=== PATIENT | male | born 1970 | race Caucasian/White ===

== ENCOUNTER 2017-04-17 16:32 | Observation (INO) ==
--- NOTE | 2017-04-17 17:11 | Emergency Department Note ---
Disposition Clinical Impression: Loss of consciousness Chest pain Qualifiers: Chest pain type: unspecified Qualified Code(s): R07.9 - Chest pain, unspecified Disposition: Admitted As Inpatient Condition: Fair Referrals: NONE,PCP [Primary Care Provider] - Forms: ED Satisfaction Letter Chest Pain HPI - General Chief Complaint: ED Psychiatric Symptoms Stated Complaint: anxiety, depression Time Seen by Provider: 04/17/17 16:35 Nursing Notes Reviewed: Yes - History of Present Illness HPI Narrative: Patient is a 46-year-old male with history of anxiety, depression, hypertension presented to the ED today with sudden chest pain. Patient was sitting on his porch after drinking one beer after taking his hypertensive medications and began having chest pain while sitting down about 4:15 today. He said that his whole left arm went numb and had shaking and sweating but no nausea or vomiting. As he walked inside the house he says legs gave out and he does not remember or happen after that. He woke up when EMS visit. His friend who saw him and called the EMS said that he was seizing. He has had this chest pain for a while every 2-3 weeks and today his chest pain was sharper. Patient denies recent illness, fever, chills, vision changes, hemoptysis. Patient says that he does have a chronic cough. He has a father who has congestive heart failure and a grandfather with a ID around age 50. Patient states that he is recently homeless. Patient denies suicidal or homicidal ideations. Severity scale (1-10): 5 - Related Data Previous Rx's Medication Instructions Recorded Paroxetine HCl 10 mg PO DAILY #30 tablet 06/18/16 Allergies Allergy/AdvReac Type Severity Reaction Status Date / Time No Known Allergies Allergy Verified 06/17/16 18:25 Chest Pain PMH - Past Medical History Medical history: Reports: hypertension Surgical history: Reports: no surgical history Psychiatric history: Reports: anxiety, bipolar, depression, PTSD, prior suicide attempt, previous psychiatric hospitalization - Social History Smoking Status: Former smoker Alcohol use: Reports: occasionally, recent Drug use: Reports: none Physical Exam Constitutional: Alert, in no acute distress, well nourished, well developed. Head: Normocephalic, atraumatic, normal contour and symmetric, no masses, lesions or scars Heart: Normal, regular rate and rhythm, no murmurs Lungs: Clear to auscultation, no wheezes, rales, or rhonchi Abdomen: tenderness to palpation in right upper and lower quadrant, Soft, nondistended, and no masses palpable, bowel sounds present and normal, no guarding or rigidity. Extremities: No clubbing, cyanosis, or edema, radial pulse +2/4, capillary refill <2sec. Skin: Skin warm and dry, no lesions, no rashes, no jaundice Neurologic: Cranial nerves II through XII grossly intact, no focal deficits, strength within normal limits in all extremities Psych: Cooperative with exam, good eye contact, cognitive function intact, judgment good insight good, speech clear, thought process logical, and goal directed - General General appearance: alert, anxious Course Course Narrative: Cardiac workup was obtained EKG showed sinus tachycardia. Troponin within normal limits. Due to loss of consciousness CT of head was obtained. Due to tenderness during examination CT of abdomen and pelvis was obtained. CT of abdomen showed a cyst consistent with intraductal papillary mucinous neoplasm ( IPMN) and MRI follow-up was recommended. Follow-up will be done inpatient as 50 % of IPMN become malignant. Amylase was elevated at 150. Patient needs further workup for cardiac and loss of consciousness causes. Consulted with Dr. White the hospitalist and will be admitted to the medical floor. Vital Signs Temperature 98.3 F 04/17/17 16:34 Pulse Rate 114 04/17/17 16:34 Respiratory Rate 20 04/17/17 16:34 Blood Pressure 143/79 04/17/17 16:34 O2 Sat by Pulse Oximetry 97 04/17/17 16:34 Temperature 98.3 F 04/17/17 16:34 Pulse Rate 102 04/17/17 18:52 Respiratory Rate 18 04/17/17 18:52 Blood Pressure 115/70 04/17/17 18:52 O2 Sat by Pulse Oximetry 94 04/17/17 18:52 Oxygen Delivery Oxygen Delivery Room Air Chest Pain - Lab Data Lab results reviewed: Yes I reviewed the patient's lab results. Lab results narrative: All Lab Results (24 Hours) 04/17/17 04/17/17 04/17/17 Range/Units 17:13 17:13 17:13 WBC (4.3-11.1) K/mcL RBC (4.19-5.50) M/mcL Hgb (12.9-16.9) g/dL Hct (37.5-50.1) % MCV (83.0-100.0) fL MCH (28.0-33.3) pg MCHC (31.6-35.5) g/dL RDW (11.5-14.5) % Plt Count (140-400) K/mcL MPV (9.4-12.4) fL Immature Gran % (0-4) % Seg Neutrophils % % Lymphocytes % % Monocytes % % Eosinophils % % Basophils % % Neutrophils # (1.6-8.9) K/mcL Lymphocytes # (0.6-4.6) K/mcL Monocytes # (0.0-1.3) K/mcL Eosinophils # (0.0-0.6) K/mcL Basophils # (0.0-0.2) K/mcL Sodium 139 (136-145) mEq/L Potassium 3.6 (3.5-4.5) mEq/L Chloride 107 (98-109) mEq/L Carbon Dioxide 18 L (19-29) mEq/L BUN 12 (8-26) mg/dL Creatinine 0.91 (0.72-1.25) mg/dL Est GFR ( Amer) > 60 (> 60) Est GFR (Non-Af Amer) > 60 (> 60) BUN/Creatinine Ratio 13 (6-26) Glucose 86 (70-99) mg/dL Calculated Osmolality 287 (280-300) Calcium 9.5 (8.6-10.8) mg/dL Total Bilirubin 0.7 (0.2-1.2) mg/dL Direct Bilirubin 0.3 (0.0-0.5) mg/dL Indirect Bilirubin 0.4 (0.0-1.2) mg/dL AST 19 (5-34) Units/L ALT 23 (0-55) Units/L Alkaline Phosphatase 59 (38-126) Units/L Troponin I (0-0.03) ng/mL B-Natriuretic Peptide < 10 (0-100) pg/mL Serum Total Protein 7.4 (6.0-8.3) g/dL Albumin 4.0 (3.5-5.0) g/dL Globulin 3.4 (2.4-3.5) g/dL Albumin/Globulin Ratio 1.2 (1.1-2.2) Amylase 180 H (25-125) Units/L Lipase 42 (8-78) Units/L Urine Color (Yellow) Urine Clarity (Clear) Urine pH (5.0-8.0) pH Units Ur Specific [place] (1.010-1.025) Urine Protein (Neg-Trace) mg/dL Urine Glucose (UA) (Normal) mg/dL Urine Ketones (Negative) mg/dL Urine Blood (Negative) Urine Nitrite (Negative) Urine Bilirubin (Negative) Urine Urobilinogen (Normal) mg/dL Ur Leukocyte Esterase (Negative) Ur Culture Indicated? (NO) Urine Opiates Screen (Dyqbnv=235) ng/mL Ur Barbiturates Screen (Aklios=797) ng/mL Ur Phencyclidine Scrn (Cutoff=25) ng/mL Ur Amphetamines Screen (Sdpslv=3045) ng/mL U Benzodiazepines Scrn (Klufeg=586) ng/mL Urine Cocaine Screen (Cutoff= 300) ng/mL U Marijuana (THC) Screen (Cutoff = 50) ng/mL Ethyl Alcohol 49 H (0-10) mg/dL 04/17/17 04/17/17 04/17/17 Range/Units 17:13 17:13 18:26 WBC 7.3 (4.3-11.1) K/mcL RBC 5.03 (4.19-5.50) M/mcL Hgb 14.8 (12.9-16.9) g/dL Hct 43.8 (37.5-50.1) % MCV 87.1 (83.0-100.0) fL MCH 29.4 (28.0-33.3) pg MCHC 33.8 (31.6-35.5) g/dL RDW 12.8 (11.5-14.5) % Plt Count 207 (140-400) K/mcL MPV 9.9 (9.4-12.4) fL Immature Gran % 0.4 (0-4) % Seg Neutrophils % 62.3 % Lymphocytes % 27.4 % Monocytes % 8.3 % Eosinophils % 1.1 % Basophils % 0.5 % Neutrophils # 4.6 (1.6-8.9) K/mcL Lymphocytes # 2.0 (0.6-4.6) K/mcL Monocytes # 0.6 (0.0-1.3) K/mcL Eosinophils # 0.1 (0.0-0.6) K/mcL Basophils # 0.0 (0.0-0.2) K/mcL Sodium (136-145) mEq/L Potassium (3.5-4.5) mEq/L Chloride (98-109) mEq/L Carbon Dioxide (19-29) mEq/L BUN (8-26) mg/dL Creatinine (0.72-1.25) mg/dL Est GFR ( Amer) (> 60) Est GFR (Non-Af Amer) (> 60) BUN/Creatinine Ratio (6-26) Glucose (70-99) mg/dL Calculated Osmolality (280-300) Calcium (8.6-10.8) mg/dL Total Bilirubin (0.2-1.2) mg/dL Direct Bilirubin (0.0-0.5) mg/dL Indirect Bilirubin (0.0-1.2) mg/dL AST (5-34) Units/L ALT (0-55) Units/L Alkaline Phosphatase (38-126) Units/L Troponin I 0.01 (0-0.03) ng/mL B-Natriuretic Peptide (0-100) pg/mL Serum Total Protein (6.0-8.3) g/dL Albumin (3.5-5.0) g/dL Globulin (2.4-3.5) g/dL Albumin/Globulin Ratio (1.1-2.2) Amylase (25-125) Units/L Lipase (8-78) Units/L Urine Color Yellow (Yellow) Urine Clarity Clear (Clear) Urine pH 6.0 (5.0-8.0) pH Units Ur Specific [place] 1.026 H (1.010-1.025) Urine Protein Negative (Neg-Trace) mg/dL Urine Glucose (UA) Normal (Normal) mg/dL Urine Ketones Negative (Negative) mg/dL Urine Blood Negative (Negative) Urine Nitrite Negative (Negative) Urine Bilirubin Negative (Negative) Urine Urobilinogen Normal (Normal) mg/dL Ur Leukocyte Esterase Negative (Negative) Ur Culture Indicated? NO (NO) Urine Opiates Screen (Fyoctt=403) ng/mL Ur Barbiturates Screen (Ugvdnw=159) ng/mL Ur Phencyclidine Scrn (Cutoff=25) ng/mL Ur Amphetamines Screen (Zuunuo=3267) ng/mL U Benzodiazepines Scrn (Vmmxpc=025) ng/mL Urine Cocaine Screen (Cutoff= 300) ng/mL U Marijuana (THC) Screen (Cutoff = 50) ng/mL Ethyl Alcohol (0-10) mg/dL 04/17/17 Range/Units 18:26 WBC (4.3-11.1) K/mcL RBC (4.19-5.50) M/mcL Hgb (12.9-16.9) g/dL Hct (37.5-50.1) % MCV (83.0-100.0) fL MCH (28.0-33.3) pg MCHC (31.6-35.5) g/dL RDW (11.5-14.5) % Plt Count (140-400) K/mcL MPV (9.4-12.4) fL Immature Gran % (0-4) % Seg Neutrophils % % Lymphocytes % % Monocytes % % Eosinophils % % Basophils % % Neutrophils # (1.6-8.9) K/mcL Lymphocytes # (0.6-4.6) K/mcL Monocytes # (0.0-1.3) K/mcL Eosinophils # (0.0-0.6) K/mcL Basophils # (0.0-0.2) K/mcL Sodium (136-145) mEq/L Potassium (3.5-4.5) mEq/L Chloride (98-109) mEq/L Carbon Dioxide (19-29) mEq/L BUN (8-26) mg/dL Creatinine (0.72-1.25) mg/dL Est GFR ( Amer) (> 60) Est GFR (Non-Af Amer) (> 60) BUN/Creatinine Ratio (6-26) Glucose (70-99) mg/dL Calculated Osmolality (280-300) Calcium (8.6-10.8) mg/dL Total Bilirubin (0.2-1.2) mg/dL Direct Bilirubin (0.0-0.5) mg/dL Indirect Bilirubin (0.0-1.2) mg/dL AST (5-34) Units/L ALT (0-55) Units/L Alkaline Phosphatase (38-126) Units/L Troponin I (0-0.03) ng/mL B-Natriuretic Peptide (0-100) pg/mL Serum Total Protein (6.0-8.3) g/dL Albumin (3.5-5.0) g/dL Globulin (2.4-3.5) g/dL Albumin/Globulin Ratio (1.1-2.2) Amylase (25-125) Units/L Lipase (8-78) Units/L Urine Color (Yellow) Urine Clarity (Clear) Urine pH (5.0-8.0) pH Units Ur Specific [place] (1.010-1.025) Urine Protein (Neg-Trace) mg/dL Urine Glucose (UA) (Normal) mg/dL Urine Ketones (Negative) mg/dL Urine Blood (Negative) Urine Nitrite (Negative) Urine Bilirubin (Negative) Urine Urobilinogen (Normal) mg/dL Ur Leukocyte Esterase (Negative) Ur Culture Indicated? (NO) Urine Opiates Screen Negative (Qkgmyf=177) ng/mL Ur Barbiturates Screen Negative (Gjrbdh=051) ng/mL Ur Phencyclidine Scrn Negative (Cutoff=25) ng/mL Ur Amphetamines Screen Negative (Itffia=3002) ng/mL U Benzodiazepines Scrn Negative (Tidhek=442) ng/mL Urine Cocaine Screen Negative (Cutoff= 300) ng/mL U Marijuana (THC) Screen Negative (Cutoff = 50) ng/mL Ethyl Alcohol (0-10) mg/dL Result diagrams: 04/17/17 17:13 04/17/17 17:13 Lab Results 04/17/17 04/17/17 04/17/17 Range/Units 17:13 17:13 17:13 WBC (4.3-11.1) K/mcL RBC (4.19-5.50) M/mcL Hgb (12.9-16.9) g/dL Hct (37.5-50.1) % MCV (83.0-100.0) fL MCH (28.0-33.3) pg MCHC (31.6-35.5) g/dL RDW (11.5-14.5) % Plt Count (140-400) K/mcL MPV (9.4-12.4) fL Immature Gran % (0-4) % Seg Neutrophils % % Lymphocytes % % Monocytes % % Eosinophils % % Basophils % % Neutrophils # (1.6-8.9) K/mcL Lymphocytes # (0.6-4.6) K/mcL Monocytes # (0.0-1.3) K/mcL Eosinophils # (0.0-0.6) K/mcL Basophils # (0.0-0.2) K/mcL Sodium 139 (136-145) mEq/L Potassium 3.6 (3.5-4.5) mEq/L Chloride 107 (98-109) mEq/L Carbon Dioxide 18 L (19-29) mEq/L BUN 12 (8-26) mg/dL Creatinine 0.91 (0.72-1.25) mg/dL Est GFR ( Amer) > 60 (> 60) Est GFR (Non-Af Amer) > 60 (> 60) BUN/Creatinine Ratio 13 (6-26) Glucose 86 (70-99) mg/dL Calculated Osmolality 287 (280-300) Calcium 9.5 (8.6-10.8) mg/dL Total Bilirubin 0.7 (0.2-1.2) mg/dL Direct Bilirubin 0.3 (0.0-0.5) mg/dL Indirect Bilirubin 0.4 (0.0-1.2) mg/dL AST 19 (5-34) Units/L ALT 23 (0-55) Units/L Alkaline Phosphatase 59 (38-126) Units/L Troponin I (0-0.03) ng/mL B-Natriuretic Peptide < 10 (0-100) pg/mL Serum Total Protein 7.4 (6.0-8.3) g/dL Albumin 4.0 (3.5-5.0) g/dL Globulin 3.4 (2.4-3.5) g/dL Albumin/Globulin Ratio 1.2 (1.1-2.2) Amylase 180 H (25-125) Units/L Lipase 42 (8-78) Units/L Urine Color (Yellow) Urine Clarity (Clear) Urine pH (5.0-8.0) pH Units Ur Specific [place] (1.010-1.025) Urine Protein (Neg-Trace) mg/dL Urine Glucose (UA) (Normal) mg/dL Urine Ketones (Negative) mg/dL Urine Blood (Negative) Urine Nitrite (Negative) Urine Bilirubin (Negative) Urine Urobilinogen (Normal) mg/dL Ur Leukocyte Esterase (Negative) Ur Culture Indicated? (NO) Urine Opiates Screen (Javson=411) ng/mL Ur Barbiturates Screen (Uhcncz=404) ng/mL Ur Phencyclidine Scrn (Cutoff=25) ng/mL Ur Amphetamines Screen (Fwtcbn=3597) ng/mL U Benzodiazepines Scrn (Cidqrl=074) ng/mL Urine Cocaine Screen (Cutoff= 300) ng/mL U Marijuana (THC) Screen (Cutoff = 50) ng/mL Ethyl Alcohol 49 H (0-10) mg/dL 04/17/17 04/17/17 04/17/17 Range/Units 17:13 17:13 18:26 WBC 7.3 (4.3-11.1) K/mcL RBC 5.03 (4.19-5.50) M/mcL Hgb 14.8 (12.9-16.9) g/dL Hct 43.8 (37.5-50.1) % MCV 87.1 (83.0-100.0) fL MCH 29.4 (28.0-33.3) pg MCHC 33.8 (31.6-35.5) g/dL RDW 12.8 (11.5-14.5) % Plt Count 207 (140-400) K/mcL MPV 9.9 (9.4-12.4) fL Immature Gran % 0.4 (0-4) % Seg Neutrophils % 62.3 % Lymphocytes % 27.4 % Monocytes % 8.3 % Eosinophils % 1.1 % Basophils % 0.5 % Neutrophils # 4.6 (1.6-8.9) K/mcL Lymphocytes # 2.0 (0.6-4.6) K/mcL Monocytes # 0.6 (0.0-1.3) K/mcL Eosinophils # 0.1 (0.0-0.6) K/mcL Basophils # 0.0 (0.0-0.2) K/mcL Sodium (136-145) mEq/L Potassium (3.5-4.5) mEq/L Chloride (98-109) mEq/L Carbon Dioxide (19-29) mEq/L BUN (8-26) mg/dL Creatinine (0.72-1.25) mg/dL Est GFR ( Amer) (> 60) Est GFR (Non-Af Amer) (> 60) BUN/Creatinine Ratio (6-26) Glucose (70-99) mg/dL Calculated Osmolality (280-300) Calcium (8.6-10.8) mg/dL Total Bilirubin (0.2-1.2) mg/dL Direct Bilirubin (0.0-0.5) mg/dL Indirect Bilirubin (0.0-1.2) mg/dL AST (5-34) Units/L ALT (0-55) Units/L Alkaline Phosphatase (38-126) Units/L Troponin I 0.01 (0-0.03) ng/mL B-Natriuretic Peptide (0-100) pg/mL Serum Total Protein (6.0-8.3) g/dL Albumin (3.5-5.0) g/dL Globulin (2.4-3.5) g/dL Albumin/Globulin Ratio (1.1-2.2) Amylase (25-125) Units/L Lipase (8-78) Units/L Urine Color Yellow (Yellow) Urine Clarity Clear (Clear) Urine pH 6.0 (5.0-8.0) pH Units Ur Specific [place] 1.026 H (1.010-1.025) Urine Protein Negative (Neg-Trace) mg/dL Urine Glucose (UA) Normal (Normal) mg/dL Urine Ketones Negative (Negative) mg/dL Urine Blood Negative (Negative) Urine Nitrite Negative (Negative) Urine Bilirubin Negative (Negative) Urine Urobilinogen Normal (Normal) mg/dL Ur Leukocyte Esterase Negative (Negative) Ur Culture Indicated? NO (NO) Urine Opiates Screen (Ppynoa=790) ng/mL Ur Barbiturates Screen (Zvavds=326) ng/mL Ur Phencyclidine Scrn (Cutoff=25) ng/mL Ur Amphetamines Screen (Msjxhv=8481) ng/mL U Benzodiazepines Scrn (Juhqju=939) ng/mL Urine Cocaine Screen (Cutoff= 300) ng/mL U Marijuana (THC) Screen (Cutoff = 50) ng/mL Ethyl Alcohol (0-10) mg/dL 04/17/17 Range/Units 18:26 WBC (4.3-11.1) K/mcL RBC (4.19-5.50) M/mcL Hgb (12.9-16.9) g/dL Hct (37.5-50.1) % MCV (83.0-100.0) fL MCH (28.0-33.3) pg MCHC (31.6-35.5) g/dL RDW (11.5-14.5) % Plt Count (140-400) K/mcL MPV (9.4-12.4) fL Immature Gran % (0-4) % Seg Neutrophils % % Lymphocytes % % Monocytes % % Eosinophils % % Basophils % % Neutrophils # (1.6-8.9) K/mcL Lymphocytes # (0.6-4.6) K/mcL Monocytes # (0.0-1.3) K/mcL Eosinophils # (0.0-0.6) K/mcL Basophils # (0.0-0.2) K/mcL Sodium (136-145) mEq/L Potassium (3.5-4.5) mEq/L Chloride (98-109) mEq/L Carbon Dioxide (19-29) mEq/L BUN (8-26) mg/dL Creatinine (0.72-1.25) mg/dL Est GFR ( Amer) (> 60) Est GFR (Non-Af Amer) (> 60) BUN/Creatinine Ratio (6-26) Glucose (70-99) mg/dL Calculated Osmolality (280-300) Calcium (8.6-10.8) mg/dL Total Bilirubin (0.2-1.2) mg/dL Direct Bilirubin (0.0-0.5) mg/dL Indirect Bilirubin (0.0-1.2) mg/dL AST (5-34) Units/L ALT (0-55) Units/L Alkaline Phosphatase (38-126) Units/L Troponin I (0-0.03) ng/mL B-Natriuretic Peptide (0-100) pg/mL Serum Total Protein (6.0-8.3) g/dL Albumin (3.5-5.0) g/dL Globulin (2.4-3.5) g/dL Albumin/Globulin Ratio (1.1-2.2) Amylase (25-125) Units/L Lipase (8-78) Units/L Urine Color (Yellow) Urine Clarity (Clear) Urine pH (5.0-8.0) pH Units Ur Specific [place] (1.010-1.025) Urine Protein (Neg-Trace) mg/dL Urine Glucose (UA) (Normal) mg/dL Urine Ketones (Negative) mg/dL Urine Blood (Negative) Urine Nitrite (Negative) Urine Bilirubin (Negative) Urine Urobilinogen (Normal) mg/dL Ur Leukocyte Esterase (Negative) Ur Culture Indicated? (NO) Urine Opiates Screen Negative (Pesusz=682) ng/mL Ur Barbiturates Screen Negative (Xoxyro=453) ng/mL Ur Phencyclidine Scrn Negative (Cutoff=25) ng/mL Ur Amphetamines Screen Negative (Wdlacs=6302) ng/mL U Benzodiazepines Scrn Negative (Ifadvj=818) ng/mL Urine Cocaine Screen Negative (Cutoff= 300) ng/mL U Marijuana (THC) Screen Negative (Cutoff = 50) ng/mL Ethyl Alcohol (0-10) mg/dL - Radiology Data Radiology results reviewed: Yes I reviewed the patient's radiology results. - EKG Data EKG attestation: Yes I reviewed and interpreted this EKG. EKG shows normal: sinus rhythm Rate: tachycardia Rhythm: NSR Heart Score - Score History: Moderately Suspicious EKG: Normal Age: 45-65 Risk Factors: Equal/Greater than 3 risk factor or history of atherosclerotic disease Troponin: Less than normal limit HEART Score Total: 4 Attestation Statement - Attestation Attestation: I examined this patient and my medical decision-making was reviewed with the Resident Physician. I agree with the documented findings, disposition and treatment plan as described except to the extent set forth below. I had face-to- face time with patient. Patient's a 46-year-old who got up wallow while sitting on the porch developed some chest pain and then went into the house and collapsed. The patient does have risk factors of hypertension and family history. Physical exam he does have some tenderness in the right upper quadrant to the epigastrium without guarding. EKG shows no acute change initial troponin was negative. We did get a CT of the abdomen due to the pain and he has a possible intraductal papillary mucinous neoplasm recommendations for MR. I discussed case with hospitalist Dr. White and we will admit.
[2017-04-17 17:23] LABS: Basophils % 0.5 %; Eosinophils # 0.1 K/mcL (0.0-0.6); Eosinophils % 1.1 %; Hematocrit 43.8 % (37.5-50.1); Hemoglobin 14.8 g/dL (12.9-16.9); Immature Granulocytes % 0.4 % (0-4); Lymphocytes % 27.4 %; Mean Corpuscular HGB Conc 33.8 g/dL (31.6-35.5); Mean Corpuscular Hemoglobin 29.4 pg (28.0-33.3); Mean Corpuscular Volume 87.1 fL (83.0-100.0); Mean Platelet Volume 9.9 fL (9.4-12.4); Monocytes # 0.6 K/mcL (0.0-1.3); Monocytes % 8.3 %; Neutrophils # 4.6 K/mcL (1.6-8.9); Platelet Count 207 K/mcL (140-400); Red Blood Count 5.03 M/mcL (4.19-5.50); Red Cell Distribution Width 12.8 % (11.5-14.5); Segmented Neutrophils % 62.3 %
[2017-04-17 17:38] LABS: Albumin/Globulin Ratio 1.2 (1.1-2.2); Bilirubin,Direct 0.3 mg/dL (0.0-0.5); Bilirubin,Indirect 0.4 mg/dL (0.0-1.2); Bilirubin,Total 0.7 mg/dL (0.2-1.2); Globulin 3.4 g/dL (2.4-3.5); Total Protein 7.4 g/dL (6.0-8.3)
[2017-04-17 17:39] LABS: BUN/Creatinine Ratio 13 (6-26); Blood Urea Nitrogen 12 mg/dL (8-26); Calcium 9.5 mg/dL (8.6-10.8); Carbon Dioxide 18 mEq/L (19-29); Chloride 107 mEq/L (98-109); Glucose 86 mg/dL (70-99); Lipase 42 Units/L (8-78); Osmolality,Calculated 287 (280-300); Potassium 3.6 mEq/L (3.5-4.5); Sodium 139 mEq/L (136-145); eGFR For African Americans > 60 (> 60); eGFR For Non-African Americans > 60 (> 60)
[2017-04-17 18:35] LABS: Bilirubin,Urine Negative (Negative); Blood,Urine Negative (Negative); Clarity,Urine Clear (Clear); Color,Urine Yellow (Yellow); Glucose,Urine (UA) Normal (Normal); Ketones,Urine Negative (Negative); Leukocyte Esterase,Urine Negative (Negative); Nitrite,Urine Negative (Negative); Protein,Urine Negative (Neg-Trace); Specific Gravity,Urine 1.026 (1.010-1.025); Urobilinogen,Urine Normal (Normal)
[2017-04-17 18:42] LABS: Amphetamine Screen,Urine Negative ng/mL (Cutoff=1000); Barbiturate Screen,Urine Negative ng/mL (Cutoff=200); Benzodiazepines Screen,Urine Negative ng/mL (Cutoff=200); Cannabinoid Screen,Urine Negative ng/mL (Cutoff = 50); Cocaine Screen,Urine Negative ng/mL (Cutoff= 300); Opiate Screen,Urine Negative ng/mL (Cutoff=300); Phencyclidine Screen,Urine Negative ng/mL (Cutoff=25)
[2017-04-17] MEDS ORDERED: Naloxone 0.4 MG/ML INJ IVP PRN (20:30)
--- NOTE | 2017-04-17 20:46 | Internal Med History&Physical ---
Date of Encounter: 04/17/17 Time of Encounter: 20:42 Assessment and Plan (1) Seizure Current visit: Yes Status: Acute continue divalproate, check level, consult neurology for med adjustments as needed given frequency of seizure. Seizure precautions, close monitoring for now (2) Chest pain Current visit: Yes Status: Acute doubt cardiac given antecedent anxiety, normal EKG, trend trop for now Qualifiers: Chest pain type: precordial pain Qualified Code(s): R07.2 - Precordial pain (3) Adjustment disorder with mixed anxiety and depressed mood Current visit: No Status: Acute continue meds. Outpatient psych for med optimization (4) IPMN (intraductal papillary mucinous neoplasm) Current visit: Yes Status: Acute possible IPMN. Not acute, incidental on CT A/P - doubt related to current presentation. However, given increased risk of pancreatic ca transformation, he needs to follow up with GI or Surgery outpatient for further management very soon after discharge for further work up such as MRI. Internal Medicine - H&P: HPI Chief complaint: Seizure, Chest discomfort History of present illness: Mr. Bunch is a 46 year old male with hx of anxiety, depression, reported bipolar who presents with seizure episode. He tells me that he had some chest discomfort at his porch and later went into the house. Discomfort sternal in location, no radiation, difficult to characterize character. When he went into the house, he apparently had a generalized and reported tonic-clonic seizure. This was witnessed by friend Dave and was able to catch hold of him to break his fall. It lasted around 5- 10 mins with some post-ictal state which improved on arrival to the ED. He reports being anxious and has recurrent seizures precipitated by anxiety. His last seizure was 2 weeks ago. They would typically occur at a freq of once every week. OF note, CT A/P incidentally found "Indeterminate cystic focus within the body of the pancreas measuring 2.2 x 1.6 cm. Findings potentially may reflect IPMN" EKG reviewed by self with rate 114, sinus tachy CT head and CXR reviewed with no acute findings CT/CT abd pelvis wo no iv no oral IMPRESSION: 1. No acute intra-abdominal process identified. 2. 3 mm subpleural right middle lobe pulmonary nodule. 3. Nonobstructing left nephrolithiasis. 4. Indeterminate cystic focus within the body of the pancreas measuring 2.2 x 1.6 cm. Findings potentially may reflect IPMN. Recommend MRI with and without contrast for further characterization. (white paper for managing incidental findings on the abdominal CT, Journal [employer], May 2011) Past Med Surg Social Fam HX - Past Medical History Medical history: hypertension Psychiatric history: anxiety, bipolar, depression, PTSD, prior suicide attempt, previous psychiatric hospitalization - Past Surgical History Surgical History: no surgical history - Social History Smoking Status: Former smoker Smokeless Tobacco Status: No Alcohol use: occasionally, recent Drug use: none Internal Medicine - H&P: Meds ARIPiprazole [Abilify] 2 mg PO DAILY 04/17/17 [History] Amoxicillin [Amoxil] 500 mg PO BID 04/17/17 [History] Divalproex Sodium [Depakote] 125 mg PO QAM 04/17/17 [History] Divalproex Sodium [Depakote] 250 mg PO QPM 04/17/17 [History] Prazosin HCl [Minipress] 2 mg PO HS 04/17/17 [History] Trazodone HCl 300 mg PO HS 04/17/17 [History] clonazePAM [Klonopin] 0.5 mg PO TID 04/17/17 [History] 3 Allergy/AdvReac Type Severity Reaction Status Date / Time No Known Allergies Allergy Verified 06/17/16 18:25 All Systems PM: A 10-system review of systems was performed and is negative for pertinent findings except as documented above in the HPI. Review of systems: ROS 14 point review of systems reviewed as best as possible given presentation. Pertinent positive or negative as per HPI or otherwise reviewed as negative - Constitutional Vitals: Temp Pulse Resp BP Pulse Ox 98.3 F 102 18 132/98 94 04/17/17 16:34 04/17/17 18:52 04/17/17 20:35 04/17/17 20:35 04/17/17 18:52 Exam: General - AAO x 3 Psych - Appropriate affect/speech. No agitation Eyes - DAISY. Eye lids intact. No scleral icterus Neuro - No gross peripheral or central neuro deficits with intact CN 2-12 exam Heart - Sinus. RRR. S1 and S2 present. No added HS/murmurs appreciated. No elevated JVD appreciated. No calf swellings/erythema Lung - Adequate air entry b/l, No crackes/wheezes appreciated GI - Soft, non-tender. No hepatosplenomegaly/ascites. BS+ - No CVA/suprapubic tenderness or palpable bladder distension Skin - Intact. No rash/petechiae/ecchymosis. Warm extremities Internal Med - H&P Results - Labs CBC & Chem 7: 04/17/17 17:13 04/17/17 17:13 Labs: Short CBC 04/17/17 Range/Units 17:13 WBC 7.3 (4.3-11.1) K/mcL Hgb 14.8 (12.9-16.9) g/dL Hct 43.8 (37.5-50.1) % Plt Count 207 (140-400) K/mcL Neutrophils # 4.6 (1.6-8.9) K/mcL BMP 04/17/17 17:13 Sodium 139 Potassium 3.6 Chloride 107 Carbon Dioxide 18 L BUN 12 Creatinine 0.91 Glucose 86 Calcium 9.5 Cardiac Enzymes 04/17/17 Range/Units 17:13 Troponin I 0.01 (0-0.03) ng/mL Liver Function 04/17/17 Range/Units 17:13 Total Bilirubin 0.7 (0.2-1.2) mg/dL Direct Bilirubin 0.3 (0.0-0.5) mg/dL AST 19 (5-34) Units/L ALT 23 (0-55) Units/L Alkaline Phosphatase 59 (38-126) Units/L Albumin 4.0 (3.5-5.0) g/dL Urine 04/17/17 Range/Units 18:26 Urine Color Yellow (Yellow) Urine Clarity Clear (Clear) Urine pH 6.0 (5.0-8.0) pH Units Ur Specific [place] 1.026 H (1.010-1.025) Urine Protein Negative (Neg-Trace) mg/dL Urine Glucose (UA) Normal (Normal) mg/dL - Impressions ITS Impressions Chest X-Ray 04/17/17 16:57 IMPRESSION: No acute cardiopulmonary process. D/ / 04/17/2017 17:39:05 Rudy Coleman MD / jah Interpreting Provider: Rudy Coleman MD Abdomen/Pelvis CT 04/17/17 17:01 IMPRESSION: 1. No acute intra-abdominal process identified. 2. 3 mm subpleural right middle lobe pulmonary nodule. 3. Nonobstructing left nephrolithiasis. 4. Indeterminate cystic focus within the body of the pancreas measuring 2.2 x 1.6 cm. Findings potentially may reflect IPMN. Recommend MRI with and without contrast for further characterization. (white paper for managing incidental findings on the abdominal CT, Journal [employer], May 2011) D/ / Dwight Gutierrez MD / Dwight Gutierrez MD Interpreting Provider: Dwight Gutierrez MD Head CT 04/17/17 17:26 IMPRESSION: No acute intracranial abnormality. Mild opacification of the left mastoid air cells. D/ / Jerson Hobbs MD / Jerson Hobbs MD Interpreting Provider: Jerson Hobbs MD
[2017-04-17] MEDS: 0.9 % Sodium Chloride 1,000 ML IVC SCH (22:20)
[2017-04-17] MEDS: clonazePAM 0.5 MG TABLET PO SCH (22:20)
[2017-04-18 01:09] LABS: Basophils % 0.4 %; Eosinophils # 0.1 K/mcL (0.0-0.6); Eosinophils % 1.6 %; Hematocrit 40.5 % (37.5-50.1); Hemoglobin 13.9 g/dL (12.9-16.9); Immature Granulocytes % 0.4 % (0-4); Lymphocytes # 2.5 K/mcL (0.6-4.6); Lymphocytes % 35.1 %; Mean Corpuscular HGB Conc 34.3 g/dL (31.6-35.5); Mean Corpuscular Volume 87.5 fL (83.0-100.0); Mean Platelet Volume 10.1 fL (9.4-12.4); Monocytes # 0.7 K/mcL (0.0-1.3); Monocytes % 9.5 %; Neutrophils # 3.7 K/mcL (1.6-8.9); Platelet Count 198 K/mcL (140-400); Red Blood Count 4.63 M/mcL (4.19-5.50); Red Cell Distribution Width 12.9 % (11.5-14.5)
[2017-04-18 01:30] LABS: Alanine Aminotransferase 20 Units/L (0-55); Albumin 3.4 g/dL (3.5-5.0); Alkaline Phosphatase 53 Units/L (38-126); Aspartate Amino Transferase 16 Units/L (5-34); BUN/Creatinine Ratio 14 (6-26); Bilirubin,Total 0.6 mg/dL (0.2-1.2); Blood Urea Nitrogen 13 mg/dL (8-26); Calcium 9.1 mg/dL (8.6-10.8); Carbon Dioxide 25 mEq/L (19-29); Chloride 107 mEq/L (98-109); Globulin 3.3 g/dL (2.4-3.5); Glucose 102 mg/dL (70-99); Magnesium 2.2 mg/dL (1.6-2.6); Osmolality,Calculated 290 (280-300); Sodium 140 mEq/L (136-145); Total Protein 6.7 g/dL (6.0-8.3); eGFR For African Americans > 60 (> 60); eGFR For Non-African Americans > 60 (> 60)
[2017-04-18] MEDS ORDERED: *HR* Enoxaparin 40 MG/0.4 ML SYRINGE SQ SCH (06:00)
[2017-04-18 06:40] VITALS: BP 114/77
[2017-04-18] MEDS ORDERED: ARIPiprazole 2 MG TABLET PO SCH (09:00)
[2017-04-18] MEDS ORDERED: Divalproex Sodium 125 MG CAPSULE PO SCH (09:00)
[2017-04-18] MEDS: clonazePAM 0.5 MG TABLET PO SCH (09:15)
[2017-04-18] MEDS: 0.9 % Sodium Chloride 1,000 ML IVC SCH (09:24)
--- NOTE | 2017-04-18 10:34 | Neurology - Consult Note ---
Date of Encounter: 04/18/17 Time of Encounter: 10:35 Assessment and Plan (1) Loss of consciousness Current Visit: Yes Status: Acute He apparently had a spell that he lost consciousness at this time it is not clear that indeed it was a seizure or perhaps syncope and an anxiety attack. Getting cardiac workup CT of head already reported as negative, scheduled for EEG, he is already on DEPAKOTE as per pt RX by psychiatrist, at the moment no need to change it may give him extra 500 mg tab, check the level to keep therapeutic, continue on other meds, he is scheduled for EEG but that can be done as out patient, if pt is about to discharge, we can see him as out pt in 3/4 week as followup also advised NOT to DRINK and DRIVE for now other workup as per Primary team (2) Adjustment disorder with mixed anxiety and depressed mood Current Visit: No Status: Acute History of Present Illness HPI: Mr. Bunch is a 46 year old male with hx of anxiety, depression, reported bipolar who presents with seizure episode. as per records he presented with sudden chest pain. Patient was sitting on his porch after drinking one beer after taking his hypertensive medications and began having chest pain while sitting down, . He said that his whole left arm went numb and had shaking and sweating but no nausea or vomiting. As he walked inside the house he says legs gave out and he does not remember or happen after that. His friend who saw him and called the EMS said that he was seizing. his friend able to catch hold of him so he didt fell to ground, He did acknowledges that he is very anxious and his seizures type of activity may have been precipitated by anxiety. he denies any history of seizures, he says take Depakote for his nerves, CT of head reported as negative Past Med Surg Social Fam HX - Past Medical History Medical history: hypertension Psychiatric history: anxiety, bipolar, depression, PTSD, prior suicide attempt, previous psychiatric hospitalization - Past Surgical History Surgical History: no surgical history - Social History Smoking Status: Former smoker Smokeless Tobacco Status: No Alcohol use: occasionally, recent Drug use: none - Family History Mother Hx Family Cardiac Disorders: Yes (HTN) Hx Family Endocrine Disorder: Yes (DM) Medications and Allergies ARIPiprazole [Abilify] 2 mg PO DAILY 04/17/17 [History] Amoxicillin [Amoxil] 500 mg PO BID 04/17/17 [History] Divalproex Sodium [Depakote] 125 mg PO QAM 04/17/17 [History] Divalproex Sodium [Depakote] 250 mg PO QPM 04/17/17 [History] Prazosin HCl [Minipress] 2 mg PO HS 04/17/17 [History] Trazodone HCl 300 mg PO HS 04/17/17 [History] clonazePAM [Klonopin] 0.5 mg PO TID 04/17/17 [History] 3 Allergy/AdvReac Type Severity Reaction Status Date / Time No Known Allergies Allergy Verified 06/17/16 18:25 All Systems: A 10-system review of systems was performed and is negative for pertinent findings except as documented above in the HPI. positive for anxiety for which he is on meds Physical Examination - Vital Signs Vital Signs: Initial Vital Signs Temp Pulse Resp BP Pulse Ox 98.3 F 114 20 143/79 97 04/17/17 16:34 04/17/17 16:34 04/17/17 16:34 04/17/17 16:34 04/17/17 16:34 - Constitutional General appearance: comfortable, other (anxious looking for comfortable) - Neurologic Detailed motor examination: full strength in all major muscle groups Motor examination - right side: 5/5: deltoids, biceps, triceps, wrist flexion, wrist extension, biodiesel division manager, hip flexors, tibialis Anterior, quadriceps, toe extension (EHL), plantarflexion Motor examination - left side: 5/5: deltoids, biceps, triceps, wrist flexion, wrist extension, hip flexors, biodiesel division manager, quadriceps, tibialis Anterior, toe extension (EHL), plantarflexion Detailed sensory examination: intact Reflex and gait examination: intact Reflexes: Biceps: 1+, Triceps: 1+, Brachioradialis: 1+, Patella: 1+, Achilles: 1 + Mental Status Examination: awake, alert, oriented to person, oriented to place, oriented to time, follows commands appropriately, answers questions appropriately, no agnosia, no aphasia, no aproxia Cranial nerve examination: PERRL, EOMI, visual vernon intact, corneal reflexes brisk symmetrically, sensory to face intact, mastication intact, no facial asymmetry is present, no dysarthria, hearing is intact symmetrically, soft palate elevates bilaterally upon phonation, gag reflex intact, flexes SCM and trapezius muscles symmetrically with full power, tongue protrudes midline, no atrophy or facial fasiculations present Cerebellar examination: no dysmetria, performs finger to nose and heel to estes symmetrically without ataxia, no gait ataxia, no truncal ataxia, no difficulty with rapid alternating movements Results - Laboratory Findings CBC and BMP: 04/18/17 00:33 04/18/17 00:33 Abnormal lab findings: Abnormal lab results Glucose 102 mg/dL (70-99) H 04/18/17 00:33 Albumin 3.4 g/dL (3.5-5.0) L 04/18/17 00:33 Albumin/Globulin Ratio 1.0 (1.1-2.2) L 04/18/17 00:33 Amylase 180 Units/L (25-125) H 04/17/17 17:13 Ur Specific [place] 1.026 (1.010-1.025) H 04/17/17 18:26 Ethyl Alcohol 49 mg/dL (0-10) H 04/17/17 17:13 Consult Discharge Plan - Plan Referrals: NONE,PCP [Primary Care Provider] -
--- NOTE | 2017-04-18 15:20 | Discharge Summary ---
Date of Encounter: 04/18/17 Time of Encounter: 15:19 - Discharge Diagnosis (1) Syncope Priority: Primary Status: Acute Qualifiers: Qualified Code(s): R55 - Syncope and collapse (2) Alcohol dependence Priority: Primary Status: Acute Qualifiers: Qualified Code(s): F10.20 - Alcohol dependence, uncomplicated (3) Adjustment disorder with mixed anxiety and depressed mood Priority: Secondary Status: Acute (4) Seizure Priority: Secondary Status: Acute - Discharge Medications Prescriptions: Aspirin Enteric Coated [Aspirin EC] 81 mg PO DAILY #30 tablet. Home Medications: ARIPiprazole [Abilify] 2 mg PO DAILY 04/17/17 [History] Divalproex Sodium [Depakote] 125 mg PO QAM 04/17/17 [History] Divalproex Sodium [Depakote] 250 mg PO QPM 04/17/17 [History] Prazosin HCl [Minipress] 2 mg PO HS 04/17/17 [History] Trazodone HCl 300 mg PO HS 04/17/17 [History] clonazePAM [Klonopin] 0.5 mg PO TID 04/17/17 [History] Aspirin Enteric Coated [Aspirin EC] 81 mg PO DAILY #30 tablet. 04/18/17 [Rx] Allergies/Adverse Reactions: 3 Allergy/AdvReac Type Severity Reaction Status Date / Time No Known Allergies Allergy Verified 06/17/16 18:25 Procedures/tests Complete & Pending: Procedures Performed prior 72 hours Category Date Time Status EV echocardiogram Routine Y 04/18/17 07:37 Completed Date of admission: 04/17/17 20:06 Primary care physician: PCP NONE Consults: 04/17/17 20:40 Consult to Neurology [CONS] Routine Consulting Provider: [facility] Reason for Consult: recurrent seizures Call Completed: No 04/18/17 12:22 Consult to Interpret Exam [CONS] Routine Consulting Provider: Rachelle Becerra I Consult to Interpret Exam: Interpret EEG - Patient Status Disposition: Home, Self-Care Condition: Good Overall status at discharge: patient is back to baseline - Discharge Instructions Follow Up With: NONE,PCP [Primary Care Provider] - Additional Instructions: Need to f/u with PCP in one week Need to f/u Neurology in 1-[address] Do not drink alcohol - Diet and Activity Activity: increase activity as tolerated Diet: low salt diet Hospital course: Mr. Bunch is a 46 year old male hx of anxiety, depression, reported bipolar who presented to ER last night with syncopal episode and questionable seizure episode. Pt stated he did have a beer and after that accidentally he took a pill ( does not know which one ) , later he passed out for a couple of minutes. Denied any CP / SOB. He was admitted here for further work up. His alcohol level was 49. Pt was placed on property assessment monitor checked serial troponin which were negative so far. He did not have any acute EKG changes. His 2 D Echo showed normal LVEF, No wall motion abnormalities. His CT of head did not show any hemorrhages. Neurologist did see him today recommend to continue same home medication. However counseled to quit drinking alcohol. He had EEG done today here, final report is pending. Recommend to f/u with Neurologist as an out pt to discuss about EEG results. His syncopal episode most likely vasovagal and orthostatic episode with alcohol induced. - Time Spent with Patient Total time spent providing and/or coordinating discharge services: - Constitutional Vitals: Temp Pulse Resp BP Pulse Ox 98.2 F 68 16 114/77 97 04/18/17 06:37 04/18/17 06:37 04/18/17 06:37 04/18/17 06:37 04/18/17 09:25 General appearance: Present: A&O X 3, pleasant, no acute distress - Head Head exam: Present: atraumatic, normal inspection - Respiratory Respiratory exam: Present: CTAB. Absent: accessory muscle use, rales, rhonchi, wheezes - Cardiovascular Cardiovascular exam: Present: RRR, +S1, +S2. Absent: diastolic murmur, gallop, rubs, systolic murmur - GI/Abdominal GI/Abdominal exam: Present: normal bowel sounds, soft, no peritoneal signs. Absent: distended, tenderness - Extremities Exam Extremities exam: Absent: calf tenderness, pedal edema, tenderness - Neurological Exam Neurological exam: Present: alert, CN II-XII intact, oriented X3, no focal deficits - Psychiatric Psychiatric exam: Present: anxious
--- NOTE | 2017-04-18 15:31 | Electrocardiograph Report ---
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
[2017-04-18] MEDS ORDERED: Divalproex (12 HR) 250 MG TABLET PO SCH (18:00)
[2017-04-19 15:16] LABS: Valproate Free <7 ug/mL (7-23)
[2017-04-21 07:33] LABS: Valproate Total 7 ug/mL (50-125)
--- NOTE | 2017-04-22 14:53 | EEG/EMG/Oth Biometrics Report ---
EEG Procedure Report Date of procedure: 04/18/17 EEG Procedure: Routine EEG Procedure Note: This is a 21 channel digital EEG performed utilizing 1020/electrode placement system. Patient has a predominant waking background frequency that is between 10-12 Hz symmetrically recorded both hemispheres and reactive to eyes opening bilaterally. There is no evidence of any seizure activity noted patient did become drowsy but did not go to stage II sleep Photic stimulation did not elicit any convulsive response Clinical Interpretation Normal electroencephalogram
== END 2017-04-18 16:28 | disposition home or self-care (01) ==
LOC: EMEROO 16:32 → 3BNU 16:32
PROVIDERS: ADMIT Internal Medicine Hematology & Oncology; ATTEND Nurse Practitioner Family